=== PATIENT | male | born 1975 | race American Indian/Alaskan Native ===

== ENCOUNTER 2019-10-20 03:36 | Emergency (ER) | payer BC ==
[2019-10-20] MEDS ORDERED: Bupivacaine 0.5%/EPINEPHrine 1:200,000 1.8 ML Cartridge INJECT ONE (04:07)
--- NOTE | 2019-10-20 04:20 | EDM.PDOC ---
ED HPI GENERAL MEDICAL PROBLEM - General Chief Complaint: ENT Problem Stated Complaint: TOOTHACHE Time Seen by Provider: 10/20/19 04:05 Source of Information: Reports: Patient History Limitations: Reports: No Limitations - History of Present Illness INITIAL COMMENTS - FREE TEXT/NARRATIVE: 44-year-old male with left mandibular molar pain for the past 12 hours. Onset: Gradual Duration: Hour(s): (12 hours) Location: Reports: Other (Left mandible) Associated Symptoms: Reports: No Other Symptoms. Denies: Fever/Chills Left Lower Face/Facial Pain Score (Numeric/FACES): 10 - Related Data Allergies Allergy/AdvReac Type Severity Reaction Status Date / Time No Known Allergies Allergy Verified 10/20/19 03:54 Home Meds: Home Meds Insulin Aspart [NovoLOG] 1 - 12 unit SUBCNJ ASDIRECTED PRN 10/20/19 [History] Insulin Glargine,Hum.Rec.Anlog [Lantus Solostar] 30 units SUBCNJ BEDTIME [History] Losartan [Cozaar] 50 mg PO DAILY 10/20/19 [History] metFORMIN [Glucophage] 500 mg PO BID 10/20/19 [History] Past Medical History Cardiovascular History: Reports: Hypertension Musculoskeletal History: Reports: Fracture Endocrine/Metabolic History: Reports: Diabetes, Type II Social & Family History - Tobacco Use Smoking Status *Q: Heavy Tobacco Smoker Years of Tobacco use: 20 Packs/Tins Daily: 0.2 - Caffeine Use Caffeine Use: Reports: Coffee - Recreational Drug Use Recreational Drug Use: No ED ROS ENT - Review of Systems Review Of Systems: See Below Constitutional: Denies: Fever, Chills HEENT: Reports: Dental Pain Respiratory: Denies: Shortness of Breath Cardiovascular: Denies: Chest Pain GI/Abdominal: Denies: Nausea, Vomiting ED EXAM, ENT - Physical Exam Exam: See Below Exam Limited By: No Limitations General Appearance: Alert, No Apparent Distress (Looks uncomfortable but not distressed) Mouth/Throat: Other (Fair amount of dental work done. There is some erythema around the first and second molar on the left maxilla, and exquisite tenderness to percussion of the second molar) Respiratory/Chest: No Respiratory Distress Course - Vital Signs Last Recorded V/S: Last Vital Signs Temp 98.6 F 10/20/19 03:58 Pulse 99 10/20/19 03:58 Resp 16 10/20/19 03:58 BP 157/94 H 10/20/19 03:58 Pulse Ox 98 10/20/19 03:58 - Orders/Labs/Meds Meds: Medications Discontinued Medications Generic Name Dose Route Start Last Admin Trade Name Ann PRN Reason Stop Dose Admin Bupivacaine HCl/Epinephrine Bitart 1.8 ml 10/20/19 04:07 10/20/19 04:11 Marcaine 0.5%/Epinephrine 1:200,000 INJECT 10/20/19 04:08 1.8 ml ONETIME ONE Administration - Re-Assessments/Exams Free Text/Narrative Re-Assessment/Exam: 10/20/19 04:19 An inferior alveolar nerve block was done on the left side, the patient was started on penicillin 500 mg 4 times a day, and he was given 6 hydrocodone for breakthrough pain. He is going to see the dentist in the next 2 days. Departure - Departure Time of Disposition: 04:27 Disposition: Home, Self-Care 01 Clinical Impression: Dental abscess - Discharge Information Instructions: Dental Abscess, [id number] Referrals: PCP,None [Primary Care Provider] - Forms: ED Department Discharge Care Plan Goals: Take 4 doses of antibiotic daily until gone or you see the dentist and get treatment. Continue with ibuprofen or naproxen for pain use hydrocodone for any breakthrough pain in the next 24 to 48 hours. Recheck if worsening such as facial swelling or fever. Sepsis Event Note - Evaluation Sepsis Screening Result: No Definite Risk - Focused Exam Date Exam was Performed: 10/20/19 Time Exam was Performed: 17:17
== END 2019-10-20 04:27 | disposition home or self-care (01) ==
LOC: JP.ED 03:36
DX: K04.7 Periapical abscess without sinus (principal); I10 Essential (primary) hypertension; E11.9 Type 2 diabetes mellitus without complications; Z79.4 Long term (current) use of insulin; Z79.899 Other long term (current) drug therapy
CPT/HCPCS: 64400; 99282-25; J3490

== ENCOUNTER 2020-01-04 19:59 | Emergency (ER) | payer BC ==
[2020-01-04] MEDS ORDERED: Bupivacaine 0.5%/EPINEPHrine 1:200,000 1.8 ML Cartridge INJECT ONE (20:59)
[2020-01-04] MEDS ORDERED: HYDROmorphone 1 MG/ML Syringe IM ONE (20:59)
--- NOTE | 2020-01-04 21:02 | EDM.PDOC ---
ED HPI GENERAL MEDICAL PROBLEM - General Chief Complaint: ENT Problem Stated Complaint: LOWER R SIDE JAW PAIN Time Seen by Provider: 01/04/20 21:00 Source of Information: Reports: Patient History Limitations: Reports: No Limitations - History of Present Illness INITIAL COMMENTS - FREE TEXT/NARRATIVE: Ibrahima is a 44 year old male, presents to the ED today with c/o right lower ba ck molar pain, broken tooth, seeing oral surgeon tomorrow, started antibiotics yesterday, wants something for pain, denies any fever/chills/nausea/vomiting. Onset: Today Right Lower Jaw Pain Score (Numeric/FACES): 10 - Related Data Allergies Allergy/AdvReac Type Severity Reaction Status Date / Time No Known Allergies Allergy Verified 10/20/19 03:54 Home Meds: Home Meds Insulin Aspart [NovoLOG] 1 - 12 unit SUBCNJ ASDIRECTED PRN 10/20/19 [History] Insulin Glargine,Hum.Rec.Anlog [Lantus Solostar] 30 units SUBCNJ BEDTIME 10/20/19 [History] Losartan [Cozaar] 50 mg PO DAILY 10/20/19 [History] metFORMIN [Glucophage] 500 mg PO BID 10/20/19 [History] Past Medical History HEENT History: Reports: Impaired Vision Cardiovascular History: Reports: Hypertension Musculoskeletal History: Reports: Fracture Neurological History: Reports: CVA Endocrine/Metabolic History: Reports: Diabetes, Type II - Past Surgical History HEENT Surgical History: Reports: Oral Surgery Social & Family History - Tobacco Use Smoking Status *Q: Current Every Day Smoker Years of Tobacco use: 4 Packs/Tins Daily: 1 - Caffeine Use Caffeine Use: Reports: Soda - Recreational Drug Use Recreational Drug Use: No ED ROS ENT - Review of Systems Review Of Systems: Comprehensive ROS is negative, except as noted in HPI. ED EXAM, ENT - Physical Exam Exam: See Below Exam Limited By: No Limitations General Appearance: Alert, WD/WN, No Apparent Distress Eye Exam: Bilateral Eye: EOMI Ears: Normal External Exam Nose: Normal Inspection Mouth/Throat: Other (broken right bottom molar no abscess, no ludwigs angina, uvula midine, overall very poor dentition) Head: Atraumatic Neck: Normal Inspection, Supple, Non-Tender. No: Lymphadenopathy (R), Lymphadenopathy (L) Respiratory/Chest: No Respiratory Distress Cardiovascular: Normal Peripheral Pulses Back: Normal Inspection Extremities: Normal Inspection Neurological: Alert, Oriented, CN II-XII Intact Psychiatric: Normal Affect, Normal Mood Lymphatic: No Adenopathy Course - Vital Signs Last Recorded V/S: Last Vital Signs Temp 36.2 C 01/04/20 21:00 Pulse 91 01/04/20 21:00 Resp 16 01/04/20 21:00 BP 169/103 H 01/04/20 21:00 Pulse Ox 100 01/04/20 21:00 Dental pain, already on antibiotics which patient started yesterday. No fluctuant abscess that requires I and D, no Wood's angina, no facial swelling. Patient requesting dental block, 1.8 ml of Marcaine with epi injected into right inferior alveolar space, patient tolerated well with no complications. Patient given an IM dose of Dilaudid here, will send home with 12 tablets of Percocet, continue Ibuprofen. Narcotic safety and side effects discussed as well as reasons to return to the ED. Patient agreeable to plan of care and discharged in stable condition. - Orders/Labs/Meds Meds: Medications Discontinued Medications Generic Name Dose Route Start Last Admin Trade Name Ann PRN Reason Stop Dose Admin Bupivacaine HCl/Epinephrine Bitart 1.8 ml 01/04/20 20:59 01/04/20 21:08 Marcaine 0.5%/Epinephrine 1:200,000 INJECT 01/04/20 21:00 1.8 ml ONETIME ONE Administration Hydromorphone HCl 1 mg 01/04/20 20:59 01/04/20 21:08 Dilaudid IM 01/04/20 21:00 1 mg ONETIME ONE Administration Departure - Departure Time of Disposition: 21:30 Disposition: Home, Self-Care 01 Condition: Good Clinical Impression: Pain, dental - Discharge Information Referrals: PCP,None [Primary Care Provider] - Forms: ED Department Discharge Additional Instructions: Ibuprofen 600 mg every 6 hours as needed. Percocet for pain as needed as prescribed, this is a narcotic, do not drive or drink alcohol if you take this. It may cause constipation and you may need an over the counter stool softener. Follow up with oral surgeon this week. Continue previously prescribed antibiotics. Sepsis Event Note (ED) - Focused Exam Vital Signs: Vital Signs Temp Pulse Resp BP Pulse Ox 01/04/20 21:00 36.2 C 91 16 169/103 H 100
== END 2020-01-04 21:25 | disposition home or self-care (01) ==
LOC: JP.ED 19:59
DX: K08.89 Other specified disorders of teeth and supporting structures (principal); I10 Essential (primary) hypertension; E11.9 Type 2 diabetes mellitus without complications; F17.210 Nicotine dependence, cigarettes, uncomplicated; Z86.73 Personal history of transient ischemic attack (TIA), and cerebral infarction without residual deficits; Z79.4 Long term (current) use of insulin; Z79.899 Other long term (current) drug therapy
CPT/HCPCS: 64400; 96372; 99282; J1170; J3490

== ENCOUNTER 2020-02-23 00:17 | Emergency (ER) | payer BC ==
[2020-02-23] MEDS ORDERED: Ketorolac 60 MG/2 ML SDV IM ONE (00:56)
[2020-02-23] MEDS ORDERED: Acetaminophen/oxyCODONE 325-5 MG Tab PO PRN (00:57)
--- NOTE | 2020-02-23 01:00 | EDM.PDOC ---
ED HPI GENERAL MEDICAL PROBLEM - General Chief Complaint: ENT Problem Stated Complaint: TOOTH PAIN Time Seen by Provider: 02/23/20 00:58 Source of Information: Reports: Patient History Limitations: Reports: No Limitations - History of Present Illness INITIAL COMMENTS - FREE TEXT/NARRATIVE: pt has increased pain in the rt lower molar area. He has 2 teeth that need extracted and he has an appt to have this done on The 24tth. He has bee out of antibiotics for the past 10 days. He feels he has more swelling. Onset: Gradual Duration: Hour(s): Location: Reports: Face Associated Symptoms: Reports: Other ( pt has increased pain in the molar area. ) Right Lower Jaw Pain Score (Numeric/FACES): 10 - Related Data Allergies Allergy/AdvReac Type Severity Reaction Status Date / Time No Known Allergies Allergy Verified 02/23/20 00:49 Home Meds: Home Meds Insulin Aspart [NovoLOG] 1 - 12 unit SUBCNJ ASDIRECTED PRN 10/20/19 [History] Insulin Glargine,Hum.Rec.Anlog [Lantus Solostar] 30 units SUBCNJ BEDTIME 10/20/19 [History] Losartan [Cozaar] 50 mg PO DAILY 10/20/19 [History] metFORMIN [Glucophage] 500 mg PO BID 10/20/19 [History] Past Medical History HEENT History: Reports: Impaired Vision Cardiovascular History: Reports: Hypertension Musculoskeletal History: Reports: Fracture Neurological History: Reports: CVA Endocrine/Metabolic History: Reports: Diabetes, Type II - Past Surgical History HEENT Surgical History: Reports: Oral Surgery Social & Family History - Tobacco Use Smoking Status *Q: Current Every Day Smoker Years of Tobacco use: 5 Packs/Tins Daily: 0.2 - Caffeine Use Caffeine Use: Reports: Coffee - Recreational Drug Use Recreational Drug Use: No ED ROS ENT - Review of Systems Review Of Systems: See Below Constitutional: Reports: No Symptoms HEENT: Reports: Dental Pain Respiratory: Reports: No Symptoms Cardiovascular: Reports: No Symptoms Endocrine: Reports: No Symptoms GI/Abdominal: Reports: No Symptoms ED EXAM, ENT - Physical Exam Exam: See Below Text/Narrative:: pt arrived with increased swelling and pain in the rt lower molar area. Exam Limited By: No Limitations General Appearance: Alert, Anxious, Moderate Distress Ears: Normal TMs Nose: Normal Inspection Mouth/Throat: Other (pt has 2 very carrious teeth in the rt lower molar area. The gums are red and swollen and do look infected. ) Course - Vital Signs Last Recorded V/S: Last Vital Signs Temp 37.0 C 02/23/20 00:56 Pulse 91 02/23/20 00:56 Resp 16 02/23/20 00:56 BP 185/90 H 02/23/20 00:56 Pulse Ox 99 02/23/20 00:56 - Orders/Labs/Meds Orders: Active Orders 24 hr Category Date Time Status Acetaminophen/oxyCODONE [Percocet 325-5 MG] Med 02/23/20 00:57 Ordered 1 tab PO ONETIME PRN Medication Orders Oxycodone/Acetaminophen (Percocet 325-5 Mg) 1 tab PO ONETIME PRN PRN Reason: Pain Meds: Medications Generic Name Dose Route Start Last Admin Trade Name Freq PRN Reason Stop Dose Admin Oxycodone/Acetaminophen 1 tab 02/23/20 00:57 Percocet 325-5 Mg PO ONETIME PRN Pain Discontinued Medications Generic Name Dose Route Start Last Admin Trade Name Freq PRN Reason Stop Dose Admin Ketorolac Tromethamine 60 mg 02/23/20 00:56 Toradol IM 02/23/20 00:57 ONETIME ONE - Re-Assessments/Exams Free Text/Narrative Re-Assessment/Exam: 02/23/20 01:06 pt was given torodol 60 mg and percocet 5/325. Departure - Departure Time of Disposition: 00:58 Disposition: Home, Self-Care 01 Condition: Fair Clinical Impression: Dental infection - Discharge Information Referrals: PCP,None [Primary Care Provider] - Forms: ED Department Discharge Care Plan Goals: keep appt for extractions, clindomycin 300mg tid, use probiotic and yogurt while on the antibiotic. tramodol 50 mg q6h prn for pain. # 12. Sepsis Event Note (ED) - Focused Exam Vital Signs: Vital Signs Temp Pulse Resp BP Pulse Ox 02/23/20 00:56 37.0 C 91 16 185/90 H 99 - My Orders Last 24 Hours: My Active Orders 02/23/20 00:57 Acetaminophen/oxyCODONE [Percocet 325-5 MG] 1 tab PO ONETIME PRN - Assessment/Plan Last 24 Hours: My Active Orders 02/23/20 00:57 Acetaminophen/oxyCODONE [Percocet 325-5 MG] 1 tab PO ONETIME PRN
== END 2020-02-23 01:14 | disposition home or self-care (01) ==
LOC: JP.ED 00:17
DX: K04.7 Periapical abscess without sinus (principal); I10 Essential (primary) hypertension; E11.9 Type 2 diabetes mellitus without complications; F17.210 Nicotine dependence, cigarettes, uncomplicated; Z79.4 Long term (current) use of insulin
CPT/HCPCS: 96372; 99282; A9270; J1885; 99283

== ENCOUNTER 2020-02-24 02:18 | Emergency (ER) | payer BC ==
[2020-02-24] MEDS ORDERED: Bupivacaine 0.5% 10 ML SDV INJECT ONE (02:47)
[2020-02-24] MEDS ORDERED: Bupivacaine 0.5%/EPINEPHrine 1:200,000 1.8 ML Cartridge INJECT ONE (02:50)
--- NOTE | 2020-02-24 03:07 | EDM.PDOC ---
ED HPI GENERAL MEDICAL PROBLEM - General Chief Complaint: General Stated Complaint: TOOTH PAIN Time Seen by Provider: 02/24/20 02:39 Source of Information: Reports: Patient History Limitations: Reports: No Limitations - History of Present Illness INITIAL COMMENTS - FREE TEXT/NARRATIVE: Rodney is a 44-year-old male presenting to the ED for reevaluation of dental pain. He was seen in the ED last night and started on clindamycin and tramadol for multiple fractured teeth with dental abscess. The patient is scheduled to see an oral surgeon on 03/03/2020 which is being arranged through the [facility] service. He reports that dentist are unable to extract the teeth because the roots are curved into the bone and he will need to see an oral surgeon. The patient has been taking a gram of Tylenol and 800 mg of ibuprofen at a time without significant relief. He has had 3 doses of the clindamycin and several doses of the tramadol and continues to have pain despite this. He is looking for any help to try to get the pain under control so he can just sleep. He denies any fever or chills, difficulty with swallowing or compromise of his airway. Right Lower Tooth/Teeth Pain Score (Numeric/FACES): 10 - Related Data Allergies Allergy/AdvReac Type Severity Reaction Status Date / Time No Known Allergies Allergy Verified 02/24/20 02:34 Home Meds: Home Meds Insulin Aspart [NovoLOG] 1 - 12 unit SUBCNJ ASDIRECTED PRN 10/20/19 [History] Insulin Glargine,Hum.Rec.Anlog [Lantus Solostar] 30 units SUBCNJ BEDTIME 10/20/19 [History] Losartan [Cozaar] 50 mg PO DAILY 10/20/19 [History] metFORMIN [Glucophage] 500 mg PO BID 10/20/19 [History] Past Medical History HEENT History: Reports: Impaired Vision Cardiovascular History: Reports: Hypertension Musculoskeletal History: Reports: Fracture Neurological History: Reports: CVA Psychiatric History: Reports: Addiction Endocrine/Metabolic History: Reports: Diabetes, Type II - Past Surgical History Head Surgeries/Procedures: Reports: None HEENT Surgical History: Reports: Oral Surgery Cardiovascular Surgical History: Reports: None Endocrine Surgical History: Reports: None Neurological Surgical History: Reports: None Musculoskeletal Surgical History: Reports: None Dermatological Surgical History: Reports: None Social & Family History - Tobacco Use Smoking Status *Q: Current Every Day Smoker Years of Tobacco use: 20 Packs/Tins Daily: 0.5 Used Tobacco, but Quit: No Second Hand Smoke Exposure: Yes - Caffeine Use Caffeine Use: Reports: Coffee - Recreational Drug Use Recreational Drug Use: No ED ROS GENERAL - Review of Systems Review Of Systems: See Below Constitutional: Reports: No Symptoms HEENT: Reports: Dental Pain (Involving the right mandibular posterior molars which have fractured off and now are infected.) Respiratory: Reports: No Symptoms Cardiovascular: Reports: No Symptoms Endocrine: Reports: No Symptoms GI/Abdominal: Reports: No Symptoms : Reports: No Symptoms Musculoskeletal: Reports: No Symptoms Skin: Reports: No Symptoms Neurological: Reports: No Symptoms Psychiatric: Reports: No Symptoms Hematologic/Lymphatic: Reports: No Symptoms Immunologic: Reports: No Symptoms ED EXAM, GENERAL - Physical Exam Exam: See Below Exam Limited By: No Limitations General Appearance: Alert, Mild Distress Eye Exam: Bilateral Eye: EOMI, PERRL Throat/Mouth: Normal Lips, Normal Oropharynx, Normal Voice, No Airway Compromise, Other (Dental fractures and avulsion of the teeth #31 and 32 with gingival erythema, edema, and significant tenderness and swelling at the base consistent with a dental abscess.) Head: Atraumatic, Normocephalic, Facial Swelling (Slight swelling over the right lower mandible at the angle of the jaw) Neck: Normal Inspection, Supple, Lymphadenopathy (R) (Submandibular and anterior cervical chain adenopathy) Respiratory/Chest: No Respiratory Distress, Lungs Clear, Normal Breath Sounds ED GENERAL MEDICAL PROCEDURES - Additional/Other Procedure(s) Other (Free Text) Procedure(s): Verbal consent was obtained to perform a dental nerve block. An inferior alveolar nerve block was performed using bupivacaine 0.5% with epinephrine instilling 1.8 mL's along the inferior alveolar nerve. Patient was observed for 15 minutes with improvement in his pain. There were no complications. Course - Vital Signs Last Recorded V/S: Last Vital Signs Temp 36.1 C 02/24/20 02:30 Pulse 103 H 02/24/20 02:30 Resp 18 02/24/20 02:30 BP 226/118 H 02/24/20 02:33 Pulse Ox 100 02/24/20 02:30 - Orders/Labs/Meds Meds: Medications Discontinued Medications Generic Name Dose Route Start Last Admin Trade Name Freq PRN Reason Stop Dose Admin Bupivacaine HCl 1 ml 02/24/20 02:47 02/24/20 02:57 Sensorcaine-Mpf 0.5% INJECT 02/24/20 02:48 Not Given ONETIME ONE Bupivacaine HCl/Epinephrine Bitart 1.8 ml 02/24/20 02:50 02/24/20 02:56 Marcaine 0.5%/Epinephrine 1:200,000 INJECT 02/24/20 02:51 1.8 ml ONETIME ONE Administration - Re-Assessments/Exams Free Text/Narrative Re-Assessment/Exam: 02/24/20 03:10 and inferior alveolar nerve block was performed on the right to provide anesthesia to tooth #31 and 32. Patient tolerated procedure well without complication. Departure - Departure Time of Disposition: 03:10 Disposition: Home, Self-Care 01 Condition: Good Clinical Impression: Dental abscess, Pain, dental - Discharge Information *PRESCRIPTION DRUG MONITORING PROGRAM REVIEWED*: Yes *COPY OF PRESCRIPTION DRUG MONITORING REPORT IN PATIENT ENOC: No Referrals: PCP,None [Primary Care Provider] - Additional Instructions: I am prescribing you oxycodone 5 mg tablets with instructions to take 1 tablet every 4 hours as needed for severe pain. Please use as sparingly as I am only dispensing 4 tablets. Care Plan Goals: Continue to take the clindamycin antibiotics and try to manage her pain primarily with the Tylenol and ibuprofen. This prescription for oxycodone is only for 4 tablets so please use it sparingly. Follow-up with your oral surgeon as scheduled or sooner if possible. Sepsis Event Note (ED) - Evaluation Sepsis Screening Result: No Definite Risk - Focused Exam Vital Signs: Vital Signs Temp Pulse Resp BP Pulse Ox 02/24/20 02:33 226/118 H 02/24/20 02:30 36.1 C 103 H 18 214/121 H 100 02/24/20 02:28 36.1 C 103 H 18 214/121 H 100 - Problem List & Annotations (1) Dental abscess SNOMED Code(s): 022383809 Code(s): K04.7 - PERIAPICAL ABSCESS WITHOUT SINUS Status: Acute Current Visit: Yes (2) Pain, dental SNOMED Code(s): 28641978 Code(s): K08.89 - OTHER SPECIFIED DISORDERS OF TEETH AND SUPPORTING STRUCTURES Status: Acute Current Visit: Yes (3) Dental infection SNOMED Code(s): 444788445 Code(s): K04.7 - PERIAPICAL ABSCESS WITHOUT SINUS Status: Acute Current Visit: No - Assessment/Plan Plan: Continue to take the clindamycin antibiotics and try to manage her pain primarily with the Tylenol and ibuprofen. This prescription for oxycodone is only for 4 tablets so please use it sparingly. Follow-up with your oral surgeon as scheduled or sooner if possible.
== END 2020-02-24 03:20 | disposition home or self-care (01) ==
LOC: JP.ED 02:18
DX: K04.7 Periapical abscess without sinus (principal); I10 Essential (primary) hypertension; E11.9 Type 2 diabetes mellitus without complications; F17.210 Nicotine dependence, cigarettes, uncomplicated; Z79.4 Long term (current) use of insulin; Z79.899 Other long term (current) drug therapy
CPT/HCPCS: 64400; 99282; J3490

== ENCOUNTER 2020-02-26 01:00 | Emergency (ER) | payer BC ==
[2020-02-26] MEDS ORDERED: Ketorolac 30 MG/ML SDV IVPUSH ONE (01:30)
[2020-02-26] MEDS ORDERED: cefTRIAXone 1 GM in Sodium Chloride 0.9% 50 ML IV ONE (01:30)
[2020-02-26] MEDS ORDERED: methylPREDNISolone Sodium Succinate 125 MG/2 ML SDV IVPUSH ONE (01:30)
--- NOTE | 2020-02-26 01:43 | EDM.PDOC ---
ED HPI GENERAL MEDICAL PROBLEM - General Chief Complaint: ENT Problem Stated Complaint: TOOTH PAIN Time Seen by Provider: 02/26/20 01:30 Source of Information: Reports: Patient History Limitations: Reports: No Limitations - History of Present Illness INITIAL COMMENTS - FREE TEXT/NARRATIVE: 44-year-old male was having ongoing dental problems in the right maxillary wisdom teeth and molars. This is been a recurring problem for him all summer. He had an appointment with a dentist on the , it is been moved up to the but even though he is on clindamycin he is getting more swelling and more pain. Tonight he developed some chills as well and it scared him. Onset: Gradual Duration: Day(s): (Ongoing for the last 7 days) Associated Symptoms: Reports: Malaise, Shortness of Breath. Denies: Chest Pain, Cough Treatments ACQUISITION EDITOR: Reports: Other Medication(s). Denies: Breathing Treatments Right Lower Jaw Pain Score (Numeric/FACES): 10 - Related Data Allergies Allergy/AdvReac Type Severity Reaction Status Date / Time No Known Allergies Allergy Verified 02/26/20 01:09 Home Meds: Home Meds Insulin Aspart [NovoLOG] 1 - 12 unit SUBCNJ ASDIRECTED PRN 10/20/19 [History] Insulin Glargine,Hum.Rec.Anlog [Lantus Solostar] 30 units SUBCNJ BEDTIME 10/20/19 [History] Losartan [Cozaar] 50 mg PO DAILY 10/20/19 [History] metFORMIN [Glucophage] 500 mg PO BID 10/20/19 [History] Clindamycin HCl 300 mg PO TID 02/26/20 [History] Past Medical History HEENT History: Reports: Impaired Vision Cardiovascular History: Reports: Hypertension Musculoskeletal History: Reports: Fracture Neurological History: Reports: CVA Psychiatric History: Reports: Addiction Endocrine/Metabolic History: Reports: Diabetes, Type II - Infectious Disease History Infectious Disease History: Reports: Chicken Pox - Past Surgical History Head Surgeries/Procedures: Reports: None HEENT Surgical History: Reports: Oral Surgery Cardiovascular Surgical History: Reports: None Endocrine Surgical History: Reports: None Neurological Surgical History: Reports: None Musculoskeletal Surgical History: Reports: None Dermatological Surgical History: Reports: None Social & Family History - Tobacco Use Smoking Status *Q: Current Every Day Smoker Years of Tobacco use: 20 Packs/Tins Daily: 0.2 - Caffeine Use Caffeine Use: Reports: Coffee - Recreational Drug Use Recreational Drug Use: No ED ROS ENT - Review of Systems Review Of Systems: See Below Constitutional: Reports: Chills HEENT: Reports: Dental Pain Respiratory: Denies: Shortness of Breath Cardiovascular: Denies: Chest Pain GI/Abdominal: Reports: Nausea. Denies: Vomiting Skin: Reports: No Symptoms. Denies: Erythema Neurological: Reports: Headache ED EXAM, ENT - Physical Exam Exam: See Below Exam Limited By: No Limitations General Appearance: Alert, No Apparent Distress (Looks uncomfortable but not distressed) Mouth/Throat: Other (Patient does have some swelling around the gingiva and mucosa near the right mandibular molars and wisdom teeth, but no significant soft tissue swelling. It is very painful to palpate the mandible.) Neck: No: Lymphadenopathy (R), Lymphadenopathy (L) Cardiovascular: Regular Rate, Rhythm Neurological: Alert, Oriented Psychiatric: Normal Affect, Normal Mood Course - Vital Signs Last Recorded V/S: Last Vital Signs Temp 98.0 F 02/26/20 01:19 Pulse 92 02/26/20 01:19 Resp 14 02/26/20 01:19 BP 190/96 H 02/26/20 01:19 Pulse Ox 98 02/26/20 01:19 - Orders/Labs/Meds Meds: Medications Discontinued Medications Generic Name Dose Route Start Last Admin Trade Name Ann PRN Reason Stop Dose Admin Ceftriaxone Sodium 1 gm/ 50 mls @ 100 mls/hr 02/26/20 01:30 02/26/20 01:41 Sodium Chloride IV 02/26/20 01:59 100 mls/hr ONETIME ONE Administration Ketorolac Tromethamine 30 mg 02/26/20 01:30 02/26/20 01:40 Toradol IVPUSH 02/26/20 01:31 30 mg ONETIME ONE Administration Methylprednisolone Sodium Succinate 125 mg 02/26/20 01:30 02/26/20 01:40 Solu-Medrol IVPUSH 02/26/20 01:31 125 mg ONETIME ONE Administration - Re-Assessments/Exams Free Text/Narrative Re-Assessment/Exam: 02/26/20 01:44 An IV was started, the patient was given 1 g of IV Rocephin, 125 mg of Solu- Medrol and 30 mg of Toradol. And instymed for 600 mg ibuprofen, 500 mg cephalexin to take 3 times a day, and 10 additional Percocet were given for pain control. The patient is going to contact the [facility] tomorrow to see if he can get in sooner. He will continue with the clindamycin as well. Departure - Departure Time of Disposition: 02:18 Disposition: Home, Self-Care 01 Clinical Impression: Dental abscess - Discharge Information Instructions: Dental Abscess, [id number] Referrals: PCP,None [Primary Care Provider] - Forms: ED Department Discharge Care Plan Goals: Contact the [facility] tomorrow to see if you can be seen sooner than the 24th. If not take medications as prescribed, including continuing the clindamycin. Sepsis Event Note (ED) - Evaluation Sepsis Screening Result: No Definite Risk - Focused Exam Vital Signs: Vital Signs Temp Pulse Resp BP Pulse Ox 02/26/20 01:19 98.0 F 92 14 190/96 H 98
== END 2020-02-26 02:19 | disposition home or self-care (01) ==
LOC: JP.ED 01:00
DX: K04.7 Periapical abscess without sinus (principal); I10 Essential (primary) hypertension; E11.9 Type 2 diabetes mellitus without complications; F17.210 Nicotine dependence, cigarettes, uncomplicated; Z79.4 Long term (current) use of insulin; Z79.899 Other long term (current) drug therapy; Z86.73 Personal history of transient ischemic attack (TIA), and cerebral infarction without residual deficits
CPT/HCPCS: 96365; 96375; 99282; J0696; J1885; J2930; J7050

== ENCOUNTER 2020-03-01 17:53 | Emergency (ER) | payer BC ==
[2020-03-01] MEDS ORDERED: Ketorolac 60 MG/2 ML SDV IM ONE (18:21)
[2020-03-01] MEDS ORDERED: fentaNYL 100 MCG/2 ML SDV IM ONE (18:21)
--- NOTE | 2020-03-01 18:26 | EDM.PDOC ---
ED HPI GENERAL MEDICAL PROBLEM - General Chief Complaint: ENT Problem Stated Complaint: HAD SURG ON TEETH SORE [facility] Time Seen by Provider: 03/01/20 18:16 Source of Information: Reports: Patient, Family, RN Notes Reviewed History Limitations: Reports: No Limitations - History of Present Illness INITIAL COMMENTS - FREE TEXT/NARRATIVE: 45-year-old gentleman presents emergency department a complaint of pain from a dental extraction he had earlier today. He does have a prescription for narcotic medication however the pharmacy refused to fill his medication because he has "reached his quota" , he is experiencing dental pain for tooth extraction no nausea vomiting no shortness of breath no chest pain Oral/Mouth Pain Score (Numeric/FACES): 10 - Related Data Allergies Allergy/AdvReac Type Severity Reaction Status Date / Time No Known Allergies Allergy Verified 03/01/20 18:18 Home Meds: Home Meds Insulin Aspart [NovoLOG] 1 - 12 unit SUBCNJ ASDIRECTED PRN 10/20/19 [History] Insulin Glargine,Hum.Rec.Anlog [Lantus Solostar] 30 units SUBCNJ BEDTIME 10/20/19 [History] Losartan [Cozaar] 50 mg PO DAILY 10/20/19 [History] metFORMIN [Glucophage] 500 mg PO BID 10/20/19 [History] metroNIDAZOLE [Metronidazole] 500 mg PO TID 03/01/20 [History] Past Medical History HEENT History: Reports: Impaired Vision Cardiovascular History: Reports: Hypertension Musculoskeletal History: Reports: Fracture Neurological History: Reports: CVA Psychiatric History: Reports: Addiction Endocrine/Metabolic History: Reports: Diabetes, Type II - Infectious Disease History Infectious Disease History: Reports: Chicken Pox - Past Surgical History Head Surgeries/Procedures: Reports: None HEENT Surgical History: Reports: Oral Surgery Cardiovascular Surgical History: Reports: None Endocrine Surgical History: Reports: None Neurological Surgical History: Reports: None Musculoskeletal Surgical History: Reports: None Dermatological Surgical History: Reports: None Social & Family History - Tobacco Use Smoking Status *Q: Current Every Day Smoker Years of Tobacco use: 20 Packs/Tins Daily: 0.2 - Caffeine Use Caffeine Use: Reports: Coffee - Recreational Drug Use Recreational Drug Use: No ED ROS ENT - Review of Systems Review Of Systems: See Below Constitutional: Reports: No Symptoms HEENT: Reports: Dental Pain ED EXAM, ENT - Physical Exam Exam: See Below Text/Narrative:: Mouth mucosa is moist and pink he does have fresh blood present at the extraction sites dentition is poor there is tenderness around the extraction sites Exam Limited By: No Limitations General Appearance: Alert, Mild Distress Respiratory/Chest: No Respiratory Distress Course - Vital Signs Last Recorded V/S: Last Vital Signs Temp 97.3 F 03/01/20 18:09 Pulse 102 H 03/01/20 18:09 Resp 18 03/01/20 18:09 BP 184/98 H 03/01/20 18:09 Pulse Ox 99 03/01/20 18:09 - Orders/Labs/Meds Orders: Active Orders 24 hr Category Date Time Status Ketorolac [Toradol] Med 03/01/20 18:21 Once 60 mg IM ONETIME ONE fentaNYL [Sublimaze] Med 03/01/20 18:21 Once 50 mcg IM ONETIME ONE Departure - Departure Time of Disposition: 18:24 Disposition: Home, Self-Care 01 Condition: Fair Clinical Impression: Postoperative pain - Discharge Information Instructions: Pain Medicine Instructions, [id number] Referrals: PCP,None [Primary Care Provider] - Additional Instructions: Please contact your oral surgeon in the morning for further instructions on pain management given your current situation, call or return to the emergency department worsening of symptoms Sepsis Event Note (ED) - Evaluation Sepsis Screening Result: No Definite Risk - Focused Exam Vital Signs: Vital Signs Temp Pulse Resp BP Pulse Ox 03/01/20 18:09 97.3 F 102 H 18 184/98 H 99 03/01/20 18:06 97.3 F 102 H 18 184/98 H 99 - My Orders Last 24 Hours: My Active Orders 03/01/20 18:21 Ketorolac [Toradol] 60 mg IM ONETIME ONE fentaNYL [Sublimaze] 50 mcg IM ONETIME ONE - Assessment/Plan Last 24 Hours: My Active Orders 03/01/20 18:21 Ketorolac [Toradol] 60 mg IM ONETIME ONE fentaNYL [Sublimaze] 50 mcg IM ONETIME ONE Plan: Assessment Acuity = acute Site and laterality = dental extraction x4 Etiology = dental caries Manifestations = pain Location of injury = Home Lab values = none Plan He was provided 60 mg Toradol IM x1 followed by 50 mcg of fentanyl IM x1 he has a prescription for hydrocodone already asked him to follow-up with his dentist tomorrow to get more details why no pain medication can be distributed This note was dictated using [employer] voice recognition software please call with any questions on syntax or grammar.
== END 2020-03-01 18:34 | disposition home or self-care (01) ==
LOC: JP.ED 17:53
DX: G89.18 Other acute postprocedural pain (principal); K08.89 Other specified disorders of teeth and supporting structures; I10 Essential (primary) hypertension; E11.9 Type 2 diabetes mellitus without complications; F17.210 Nicotine dependence, cigarettes, uncomplicated; Z79.4 Long term (current) use of insulin; Z79.899 Other long term (current) drug therapy
CPT/HCPCS: 96372; 99283; J1885; J3010

== ENCOUNTER 2021-03-20 11:47 | Emergency (ER) | payer SELFPAY ==
[2021-03-20] MEDS ORDERED: Ketorolac 30 MG/ML SDV IM ONE (13:58)
--- NOTE | 2021-03-20 14:05 | EDM.PDOC ---
ED HPI GENERAL MEDICAL PROBLEM - General Chief Complaint: ENT Problem Stated Complaint: TOOTH PAIN Time Seen by Provider: 03/20/21 13:50 Source of Information: Reports: Patient, Old Records, RN History Limitations: Reports: No Limitations - History of Present Illness INITIAL COMMENTS - FREE TEXT/NARRATIVE: 46 yo NA male here with dental pain. He [facility] for his care. He has as dentist appt next for removal with an oral surgeon in 3 weeks. No fever. Onset: Gradual Duration: Day(s):, Getting Worse Location: Reports: Face (left) Quality: Reports: Ache Severity: Moderate Improves with: Reports: Medication Worsens with: Reports: Other (time) Context: Reports: Other (See HPI) Associated Symptoms: Reports: No Other Symptoms. Denies: Fever/Chills Treatments REGRADER: Reports: Other (see below) (ibuprofen last 8 hrs ago) Left Oral/Mouth Pain Score (Numeric/FACES): 10 - Related Data Allergies Allergy/AdvReac Type Severity Reaction Status Date / Time No Known Allergies Allergy Verified 03/20/21 13:28 Home Meds: Home Meds Insulin Aspart [NovoLOG] 1 - 12 unit SUBCNJ ASDIRECTED PRN 10/20/19 [History] Insulin Glargine,Hum.Rec.Anlog [Lantus Solostar] 30 units SUBCNJ BEDTIME 10/20/19 [History] Losartan [Cozaar] 50 mg PO DAILY 10/20/19 [History] metFORMIN [Glucophage] 500 mg PO BID 10/20/19 [History] Clindamycin HCl 300 mg PO Q8H #30 capsule 03/20/21 [Rx] Ketorolac [Toradol] 10 mg PO Q6H PRN #18 tab 03/20/21 [Rx] Past Medical History HEENT History: Reports: Impaired Vision Cardiovascular History: Reports: Hypertension Musculoskeletal History: Reports: Fracture Neurological History: Reports: CVA Psychiatric History: Reports: Addiction Endocrine/Metabolic History: Reports: Diabetes, Type II - Infectious Disease History Infectious Disease History: Reports: Chicken Pox - Past Surgical History Head Surgeries/Procedures: Reports: None HEENT Surgical History: Reports: Oral Surgery Cardiovascular Surgical History: Reports: None Endocrine Surgical History: Reports: None Neurological Surgical History: Reports: None Musculoskeletal Surgical History: Reports: None Dermatological Surgical History: Reports: None Social & Family History - Tobacco Use Tobacco Use Status *Q: Heavy Tobacco User Years of Tobacco use: 30 Packs/Tins Daily: 0.5 - Caffeine Use Caffeine Use: Reports: Coffee - Recreational Drug Use Recreational Drug Use: No ED ROS ENT - Review of Systems Review Of Systems: See Below Constitutional: Denies: Fever, Chills HEENT: Reports: Dental Pain Respiratory: Reports: No Symptoms Cardiovascular: Reports: No Symptoms GI/Abdominal: Reports: No Symptoms Skin: Reports: No Symptoms Neurological: Reports: No Symptoms ED EXAM, ENT - Physical Exam Exam: See Below Exam Limited By: No Limitations General Appearance: Alert, WD/WN, No Apparent Distress Eye Exam: Bilateral Eye: Normal Inspection Ears: Normal External Exam, Normal Canal, Hearing Grossly Normal Nose: Normal Inspection, No Blood Mouth/Throat: Normal Inspection, Normal Lips, Normal Oropharynx, Dental Tenderness (L posterior most mandibular molar, there is an intact filling. Several teeth have early decay at the gumline with mod associated gingivitis. ). No: Normal Teeth, Dental Trauma Head: Atraumatic, Normocephalic. No: Facial Swelling Neck: Normal Inspection. No: Lymphadenopathy (R), Lymphadenopathy (L) Extremities: Normal Inspection Neurological: Alert, Oriented, CN II-XII Intact, Normal Cognition, No Motor/Sensory Deficits Psychiatric: Normal Affect, Normal Mood Skin: Warm, Dry, Intact, Normal Color, No Rash Course - Vital Signs Last Recorded V/S: Last Vital Signs Temp 36.1 C 03/20/21 13:27 Pulse 101 H 03/20/21 13:27 Resp 16 03/20/21 13:27 BP 148/89 H 03/20/21 13:27 Pulse Ox 96 03/20/21 13:27 - Orders/Labs/Meds Meds: Medications Discontinued Medications Generic Name Dose Route Start Last Admin Trade Name Freq PRN Reason Stop Dose Admin Ketorolac Tromethamine 30 mg 03/20/21 13:58 Ketorolac 30 Mg/Ml Sdv IM 03/20/21 13:59 ONETIME ONE Departure - Departure Time of Disposition: 14:10 Disposition: Home, Self-Care 01 Condition: Fair Clinical Impression: Pain, dental - Discharge Information *PRESCRIPTION DRUG MONITORING PROGRAM REVIEWED*: Not Applicable *COPY OF PRESCRIPTION DRUG MONITORING REPORT IN PATIENT ENOC: Not Applicable Prescriptions: Clindamycin HCl 300 mg PO Q8H #30 capsule Ketorolac [Toradol] 10 mg PO Q6H PRN #18 tab PRN Reason: Pain Instructions: Dental Pain, [id number] Referrals: PCP,None [Primary Care Provider] - Forms: ED Department Discharge, ED Return to Work/School Form Additional Instructions: Take clindamycin every 8 hrs. For pain relief use Toradol every 6 hrs with food and acetaminophen 1000 mg every 6 hrs. You may substitute ibuprofen 600 mg for the Toradol if you run out. See your dentist as schedules. See your primary care provider in the interim if needed. Sepsis Event Note (ED) - Evaluation Sepsis Screening Result: No Definite Risk - Focused Exam Vital Signs: Vital Signs Temp Pulse Resp BP Pulse Ox 03/20/21 13:27 36.1 C 101 H 16 148/89 H 96 03/20/21 13:26 36.1 C 101 H 16 148/89 H 96
== END 2021-03-20 14:12 | disposition home or self-care (01) ==
LOC: JP.ED 11:47
DX: K04.7 Periapical abscess without sinus (principal); K05.10 Chronic gingivitis, plaque induced; E11.9 Type 2 diabetes mellitus without complications; I10 Essential (primary) hypertension; Z72.0 Tobacco use; Z79.84 Long term (current) use of oral hypoglycemic drugs; Z79.4 Long term (current) use of insulin; Z79.899 Other long term (current) drug therapy
CPT/HCPCS: 96372; 99282; J1885